=== PATIENT | female | born 1975 | race African-American/Black ===

== ENCOUNTER 2018-03-08 05:11 | Inpatient (IN) | payer OTHER ==
[2018-03-05 18:55] VITALS: BMI 32.5
[2018-03-08] MEDS ORDERED: IBUPROFEN 800 MG/8 ML IJ IVPB PRN (06:32)
[2018-03-08] MEDS ORDERED: SIMETHICONE 80 MG TAB.CHEW (FP) PO PRN (06:37)
--- NOTE | 2018-03-08 06:50 | HP ---
Satellite [facility] - Chief Complaint Chief Complaint: Leiomyomatous uterus. Pelvic pain. Voluntary sterilization History Source: Patient - Past Medical History Allergies/Adverse Reactions: Allergies Allergy/AdvReac Type Severity Reaction Status Date / Time No Known Allergies Allergy Verified 03/05/18 18:55 ...LMP: 02/13/18 ...LMP Comment: IRREGULAR ...: 5 ...Para: 3 Additional Medical History: AMA. Hepatitis A antibody pos. Has not been outside country - Current Medications Current Medications: Home Medications Medication Instructions Recorded Ferrous Gluconate 1 tab PO BID 03/05/18 Satellite Physical Exam - Physical Examination General Appearance: Well Nourished, Well Developed ENT: Clear Lung: Clear to auscultation Heart: Regular rate & rhythm, Normal S1, Normal S2 Breasts: Soft, Non-Tender Abdomen: Soft, No tenderness Extremities: No edema Pelvic Exam: Within normal limits External Genitalia, Within normal limits Vagina, Within normal limits Cervix, Within normal limits [place], Other Uterus (10-12 cm) Neurological: Intact, Alert, Oriented Satellite Impression/Plan - Impression/Plan Impression: Leiomyomatous uterus. Pelvic pain. voluntary sterilization Operative Procedure: Abdominal myomectomy. bilateral salpingectomy Date to be Performed: 03/08/18
[2018-03-08] MEDS ORDERED: MIDAZOLAM HCL 2 MG/2 ML SINGLE DOSE VIAL ONE ×2 (07:22)
[2018-03-08] MEDS ORDERED: fentaNYL CITRATE 250 MCG/5 ML VIAL ONE (08:04)
[2018-03-08] MEDS ORDERED: LIDOCAINE HCL/PF 2% SDV 5ML VIAL ONE (08:04)
[2018-03-08] MEDS ORDERED: ceFAZolin SODIUM 1 GM VIAL ONE ×2 (08:04→17:30)
[2018-03-08] MEDS ORDERED: DEXAMETHASONE SOD PHOSPHATE 4 MG/1 ML VIAL ONE ×2 (08:04→09:05)
[2018-03-08] MEDS ORDERED: ROCURONIUM BROMIDE 50 MG/5 ML VIAL ONE (08:07)
[2018-03-08] MEDS ORDERED: PROPOFOL 20 ML ONE (08:07)
[2018-03-08] MEDS ORDERED: ceFAZolin SODIUM 1 GM VIAL IVPB ONE ×2 (08:21→17:35)
[2018-03-08] MEDS ORDERED: NEOSTIGMINE METHYLSULFATE 0.5 MG/ML - 10 ML MDV ONE (09:03)
[2018-03-08] MEDS ORDERED: GLYCOPYRROLATE 0.2 MG/1 ML VIAL ONE (09:03)
[2018-03-08] MEDS ORDERED: DEXAMETHASONE SOD PHOSPHATE 4 MG/1 ML VIAL IVPUSH ONE (09:24)
[2018-03-08] MEDS ORDERED: ONDANSETRON 4 MG/2 ML VIAL IVPUSH PRN (09:24)
[2018-03-08] MEDS ORDERED: PROMETHAZINE HCL 25 MG/1 ML VIAL IVPB PRN (09:24)
--- NOTE | 2018-03-08 09:49 | OP ---
Operative Note - Note: Operative Date: 03/08/18 Pre-Operative Diagnosis: ABD/Pelvic pain secondary to uterine leiomyoma , elective sterilization Operation: uterine myomectomy, bilateral salpingectomy, right ovarian cystectomy Post-Operative Diagnosis: Same as Pre-op Surgeon: Terese Warner Furniture Manager: Juancho Whittington Anesthesiologist/SPORTS STATISTICIAN: Mohamud Garcia Anesthesia: General Specimens Removed: 1 uterine leiomyoma, right ovarian cyst, bilateral tubes Estimated Blood Loss (mls): 30 Fluid Volume Replaced (mls): 700 Operative Report Dictated: Yes
--- NOTE | 2018-03-08 09:50 | SURG ---
Surgery Paleologist Note Paleologist: Juancho Whittington PA-C Date of Service: 03/08/18 Diagnosis: Pelvic pain secondary to leiomyoma of uterus, elective sterilization Procedure: Open myomectomy, Rt ovarian cystectomy, Bilateral salpingectomy I was present for the entirety of the operative procedure. For further detail, please refer to operative report.
[2018-03-08] MEDS ORDERED: CEFAZOLIN 2 GM/D5W 2 GM/50 ML ML IVPB SCH (10:00)
[2018-03-08] MEDS ORDERED: HYDROmorphone *PCA* 10MG/50ML DISP.SYRIN PCA ONE ×2 (10:05→10:15)
--- NOTE | 2018-03-08 12:51 | OP ---
DATE OF OPERATION: 03/08/2018 PREOPERATIVE DIAGNOSIS: Leiomyomatous uterus, pelvic pain, and voluntary sterilization. OPERATION: Abdominal myomectomy, bilateral salpingectomy, and right ovarian cystectomy. POSTOPERATIVE DIAGNOSIS: Leiomyomatous uterus, pelvic pain, voluntary sterilization, right ovarian cyst. SURGEON: Dominik Russell MD CHEMICAL TANK WORKER: NALINI Márquez ANESTHESIA: General. ANESTHESIOLOGIST: Mohamud Garcia MD FINDINGS: A 3-cm right ovarian cyst and an adenomyotic 3- to 4-cm myoma removed from the intramural submucosal area. Tubes were noted to be normal. DESCRIPTION OF PROCEDURE: The patient was taken to the operating room and placed in supine position, prepped and draped in the usual sterile fashion. A time-out was performed in accordance with hospital regulations. Alba catheter was inserted into the bladder. Pfannenstiel skin incision was made through the patient's previous scar. Cautery was then used to go through layers of the abdominal wall to the fascia. The fascia was cut in the midline, and cautery was then used to open the fascia in smiling fashion. Chiki was then used to bluntly and sharply dissect the rectus muscle off the fascia. Muscles were split in the midline. Peritoneal cavity was then entered and carried upward and downward. The uterus was then exteriorized. Bowel was packed out of the operative field. Palpation of the uterus revealed a 3- to 4-cm intramural, possibly submucosal myoma. Cautery was then used to make a vertical incision in the posterior aspect of the uterus, and adenomyotic myoma was then removed using blunt and sharp technique. Myoma was then submitted to Pathology. The muscle was then approximated using 0 Vicryl suture. Serosa was then closed using 2-0 V-Lock suture in an imbricating fashion. The tubes were bilaterally removed using LigaSure, cauterization, and cutting and submitted to Pathology. Attention was then drawn to the right ovary where a 3-cm ovarian cyst was seen. LigaSure was then used to cut off the right ovarian cyst and submit to Pathology. Hemostasis was achieved using coagulation. Interceed was then used to cover the incision. Uterus was then anteriorized. Abdominal cervical was cleaned with clean laparotomy pads. Peritoneum closed using 0 Vicryl suture. The fascia was then closed using 0 Vicryl suture in 2 parts. The subcutaneous was closed using 0 Vicryl suture. The skin was then closed using 3-0 Vicryl in subcuticular fashion. The wound was washed and dressed. The patient tolerated the procedure well. Estimated blood loss 30 mL. DOMINIK RUSSELL M.D. [id number]
[2018-03-08] MEDS: HYDROmorphone *PCA* 10MG/50ML DISP.SYRIN PCA SCH (18:26)
[2018-03-08] MEDS: ELECTROLYTE-148 SOLN 1,000 ML IV SCH (18:50)
[2018-03-08 19:14] LABS: BASO % 0.1 % (0-2.0); HEMATOCRIT 35.1 % (32.4-45.2); LYMPH % 7.8 % (8-40); MCHC 31.4 g/dl (32.0-36.0); MEAN CELL VOLUME 76.4 fl (80-96); MONO % 0.7 % (3.8-10.2); NEUT % 91.4 % (42.8-82.8); PLATELET COUNT 265 K/MM3 (134-434); RDW 21.7 % (11.6-15.6); WHITE BLOOD COUNT 13.4 K/mm3 (4.0-10.0)
[2018-03-09] MEDS ORDERED: oxyCODONE HCL 5 MG TABLET PO PRN (06:35)
[2018-03-09] MEDS ORDERED: ACETAMINOPHEN 650 MG/20.3 ML ORAL SOLUTION (CUPS) PO PRN (06:37)
[2018-03-09 07:29] LABS: BASO % 0.1 % (0-2.0); EOS % 0.1 % (0-4.5); HEMATOCRIT 32.7 % (32.4-45.2); HEMOGLOBIN 10.4 GM/dL (10.7-15.3); LYMPH % 15.6 % (8-40); MCH 24.4 pg (25.7-33.7); MCHC 31.7 g/dl (32.0-36.0); MEAN PLT VOLUME 8.9 fl (7.5-11.1); MONO % 6.7 % (3.8-10.2); NEUT % 77.5 % (42.8-82.8); PLATELET COUNT 214 K/MM3 (134-434); RBC 4.25 M/mm3 (3.60-5.2); RDW 21.7 % (11.6-15.6); WHITE BLOOD COUNT 13.8 K/mm3 (4.0-10.0)
--- NOTE | 2018-03-09 07:58 | PN ---
Progress Note (short form) - Note Progress Note: POD#1 Pt without any nausea this am or overnight. She tolerated clears, no flatus or bowel function. Alba cath removed this am, hasn't voided yet. Vital Signs Period Temp Pulse Resp BP Sys/Elizondo Pulse Ox Last 24 Hr 97.4 F-99.5 F 64-86 16-20 108-151/64-87 97-100 uop:2800 GEN: Appears comfortable CV:RRR Lungs: CTA b/l anteriorly ABD: soft, non-distended, inc tenderness. Dressing c/d/i. LE: SCDs/teds in place. No calf tenderness or swelling noted. b/l Laboratory Tests //18 18:20 WBC 13.4 H D Hgb 11.0 Hct 35.1 Plt Count 265 A/P: 43 yo female s/p abdominal myomectomy, salpingectomy POD#1 May advance diet once passing flatus OOB to chair/ambulate CBC pending discontinue CAMPAIGN MANAGEMENT SPECIALIST-oral pain medications
[2018-03-09] MEDS: ENOXAPARIN NA (PORCINE) 40 MG/0.4 ML DISP.SYRIN SQ SCH (09:58)
--- NOTE | 2018-03-09 10:13 | PN ---
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
[2018-03-09] MEDS: HYDROmorphone *PCA* 10MG/50ML DISP.SYRIN PCA SCH (10:49)
[2018-03-09] MEDS: ELECTROLYTE-148 SOLN 1,000 ML IV SCH ×2 (16:17→20:00)
[2018-03-09] MEDS: oxyCODONE HCL 5 MG TABLET PO PRN ×2 (16:18→20:58)
[2018-03-10] MEDS: ELECTROLYTE-148 SOLN 1,000 ML IV SCH (04:00)
[2018-03-10] MEDS: ENOXAPARIN NA (PORCINE) 40 MG/0.4 ML DISP.SYRIN SQ SCH (09:21)
--- NOTE | 2018-03-10 10:23 | PATH ---
Surgical Pathology Report Patient Name: [facility]. Rec. #: [id number] /Age/Gender: 1975 (Age: 43) / F Account: [id number] Location: [address] [place] [address] Taken: 03/08/2018 Received: 03/08/2018 Reported: 03/10/2018 Physicians: Terese Wraner M.D. Specimen(s) Received A: MYOMA B: LEFT FALLOPIAN TUBE C: RIGHT FALLOPIAN TUBE D: RIGHT OVARIAN CYST Clinical History Leiomyoma of uterus Final Diagnosis A. MYOMA, EXCISION: LEIOMYOMA. B. LEFT FALLOPIAN TUBE, RESECTION: PORTION OF FALLOPIAN TUBE WITH PARATUBAL CYST. C. RIGHT FALLOPIAN TUBE, RESECTION: PORTION OF FALLOPIAN TUBE WITH NO DIAGNOSTIC ABNORMALITIES. D. RIGHT OVARIAN CYST, EXCISION: HEMORRHAGIC CORPUS LUTEUM. Electronically Signed Santa Holm M.D. Gross Description A. received in formalin labeled "myoma," is a 12 g, 3.0 x 2.7 x 2.5 cm smith, rubbery nodule, consistent with a myoma. Sectioning reveals smith, rubbery parenchyma with whorled architecture. No areas of hemorrhage or necrosis are identified. Pilot Manager sections are submitted in 2 cassettes. B. received in formalin labeled "left fallopian tube," is a 2.8 cm in length fimbriated fallopian tube with a 0.8 cm greatest dimension attached paratubal cyst. The outer surface is enriquez purple and smooth. Sectioning reveals an unremarkable lumen. Pilot Manager sections are submitted in 2 cassettes as follows: 1-fimbria and paratubal cyst; 2-cross sections of fallopian tube. C. Received in formalin labeled "right fallopian tube," is a 4.5 cm in length fimbriated fallopian tube. The outer surface is caro purple and smooth. Sectioning reveals an unremarkable lumen. Pilot Manager sections are submitted in 2 cassettes as follows: 1-fimbria; 2-cross sections of fallopian tube. D. Received in formalin labeled "right ovarian cyst," is a 2.0 x 1.5 x 0.8 cm portion of smith-pink soft tissue. Sectioning reveals a hemorrhagic corpus luteum. The specimen is bisected and entirely submitted in 2 cassettes. /03/08/2018 saudi/03/08/2018
--- NOTE | 2018-03-10 10:24 | DS ---
Physical Exam: SUBJECTIVE: Patient seen and examined. Alert. Sitting in chair at bedside. Shes been oob and ambulating unassisted. Tolerating diet. Voiding spontaneously. Passing a lot of flatus. Denies n/v/f/c, CP or SOB. OBJECTIVE: Vital Signs Temperature 99.5 F 03/10/18 05:53 Pulse Rate 98 H 03/10/18 05:53 Respiratory Rate 20 03/10/18 05:53 Blood Pressure 114/67 03/10/18 05:53 O2 Sat by Pulse Oximetry (%) 98 03/09/18 20:27 PHYSICAL EXAM GENERAL: The patient is awake, alert, and fully oriented, in no acute distress NECK: Trachea midline, full range of motion, supple. LUNGS: Breath sounds equal, clear to auscultation bilaterally, no wheezes, no crackles, no accessory muscle use. HEART: Regular rate and rhythm, S1, S2 without murmur, rub or gallop. ABDOMEN: low transverse incision c/d/i/. EXTREMITIES: 2+ pulses, warm, well-perfused, no edema. NEUROLOGICAL: Cranial nerves II through XII grossly intact. Normal speech, gait not observed. PSYCH: Normal mood, normal affect. SKIN: Warm, dry, normal turgor, no rashes or lesions noted. LABS CBC,CMP WBC 13.8 K/mm3 (4.0-10.0) H 03/09/18 06:45 RBC 4.25 M/mm3 (3.60-5.2) 03/09/18 06:45 Hgb 10.4 GM/dL (10.7-15.3) L 03/09/18 06:45 Hct 32.7 % (32.4-45.2) 03/09/18 06:45 MCV 77.0 fl (80-96) L 03/09/18 06:45 MCH 24.4 pg (25.7-33.7) L 03/09/18 06:45 MCHC 31.7 g/dl (32.0-36.0) L 03/09/18 06:45 RDW 21.7 % (11.6-15.6) H 03/09/18 06:45 Plt Count 214 K/MM3 (134-434) 03/09/18 06:45 MPV 8.9 fl (7.5-11.1) 03/09/18 06:45 Neutrophils % 77.5 % (42.8-82.8) 03/09/18 06:45 Lymphocytes % 15.6 % (8-40) D 03/09/18 06:45 Monocytes % 6.7 % (3.8-10.2) D 03/09/18 06:45 Eosinophils % 0.1 % (0-4.5) D 03/09/18 06:45 Basophils % 0.1 % (0-2.0) 03/09/18 06:45 Serum , Qual Negative 03/08/18 06:18 HOSPITAL COURSE: Date of Admission:03/08/18 Date of Discharge: 03/10/18 The patient was admitted to the Med-Surg Unit after an elective open abdominal myomectomy and bilat salpingectomy The day of surgery, the patient ambulated the hallways with assistance. Narcotic and non-narcotic pain management control was achieved with an oral and IV approach. POD #1, her maria was removed and trial of void initiated. POD #2 passing flatus and voiding spontaneously. Tolerating PO diet. Yeny-operative IV ABX were administered. DVT prophylaxis was achieved with SCDs and early ambulation. Narcotic scripts checked with [facility] [facility] prior to escribe. The discharge instructions and an oral pain management plan were reviewed with the patient. All questions answered. Above plan discussed with Dr. Warner and agreed. Minutes to complete discharge: 15 Visit type - Case Type Case Type: Scheduled
[2018-03-10 10:40] VITALS: BP 123/73; PULSE 105; TEMP 99
== END 2018-03-10 14:06 | disposition home or self-care (01) | DRG 519 ==
LOC: JSAMEDAYSX 05:11 → EDSTATUS 13:37 → J6S 17:55
PROVIDERS: ADMIT Obstetrics & Gynecology; ATTEND Obstetrics & Gynecology
PROC: 0UB70ZZ Excision of Bilateral Fallopian Tubes, Open Approach (ICD-10-PCS; 2018-03-08)
PROC: 0UB00ZZ Excision of Right Ovary, Open Approach (ICD-10-PCS; 2018-03-08)
PROC: 0UB90ZZ Excision of Uterus, Open Approach (ICD-10-PCS; principal; 2018-03-08 07:59)
DX: D25.9 Leiomyoma of uterus, unspecified (principal); N83.201 Unspecified ovarian cyst, right side; R10.2 Pelvic and perineal pain; Z30.2 Encounter for sterilization
CPT/HCPCS: 36415; 84703; 85025; 86850; 86900; 86901; 88302-TC; 88304-TC; 88305-TC; 94010; 94760